=== PATIENT | female | born 1965 | race Caucasian/White ===

== ENCOUNTER 2025-04-23 01:35 | Day surgery (SDC) | payer BC, MEDICARE, SELFPAY ==
[2025-04-09 13:31] VITALS: BMI 28.3
[2025-04-23 09:57] VITALS: BP 134/53; PULSE 86; RESP 18; TEMP 36.6; O2SAT 100; BMI 27.4
[2025-04-23] MEDS: LACTATED RINGERS 1,000 ML 150 ML IV CONT (10:00)
--- NOTE | 2025-04-23 10:31 | WPDANESEPPF ---
Anes - Initial Pre Proc Eval Procedure: Operation Date: 04/23/25 10:30 Proposed Procedures p Colonoscopy - Neel Woodward MD Date/Time: 04/23/25 10:31 Surgeon: Neel Woodward MD Pre Op Diagnosis: Diverticulitis of intestine, part unspecified, wit Patient Data Age: 59 Gender: F Height: 1.6 m Weight: 70.3 kg Last Vital Signs Temp 36.6 C 04/23/25 09:57 Pulse 86 04/23/25 09:57 Resp 18 04/23/25 09:57 BP 134/53 L 04/23/25 09:57 Pulse Ox 100 04/23/25 09:57 O2 Del Method Room Air 04/23/25 09:57 Allergies Allergy/AdvReac Type Severity Reaction Status Date / Time Sulfa (Sulfonamide Allergy Unknown RASH Verified 04/23/25 09:54 Antibiotics) tazobactam Allergy Rash Verified 04/23/25 09:54 Home Medications ?Medication ?Instructions ?Recorded ?Confirmed ?Type acetaminophen 325 mg tablet 325 mg PO ONCE PRN pain 04/09/25 04/23/25 History (Aminofen) biotin 10,000 mcg capsule 10,000 mcg PO DAILY 04/09/25 04/23/25 History calcium phosphate,dibasic 77 1 tablet PO DAILY 04/09/25 04/23/25 History mg-vitamin D3 400 unit tablet diazepam 2 mg tablet 2 mg PO DAILY 04/09/25 04/23/25 History diclofenac sodium 1 % topical gel 2.25 inch topical ONCE 04/09/25 04/23/25 History (Arthritis Pain (diclofenac)) folic acid 1 mg tablet 3 mg PO DAILY 04/09/25 04/23/25 History lactobacillus combination no.9 4 4,000 mmu cells PO DAILY 04/09/25 04/23/25 History billion cell capsule (Adult 50 Plus Probiotic) methotrexate (PF) 20 mg/0.4 mL 20 mg subcut WEEKLY 04/09/25 04/09/25 History subcutaneous auto-injector (Rasuvo (PF)) omeprazole 20 mg capsule,delayed 20 mg PO DAILY 04/09/25 04/23/25 History release ondansetron 4 mg disintegrating 4 mg PO PRN PRN nausea and vomiting 04/09/25 04/09/25 History tablet prednisone 20 mg tablet 20 mg PO DAILY 04/09/25 04/23/25 History prednisone 5 mg tablet 5 mg PO DAILY 04/09/25 04/09/25 History Patient hx anesthesia problems: none Family hx anesthesia problems: none Results Review: All pre-operative results and documents have been reviewed as part of the pre-operative evaluation. [facility] Past Medical History Medical History (Updated 04/23/25 @ 10:35 by Ricardo Bernal MD) Diverticulosis Overweight Rheumatoid arthritis Social History Social History Smoking status: Never smoker Alcohol intake: never Substance use: never Substance use type: does not use Living arrangements: with family Spiritual care concerns: No Anes - Eval Final PreProcedure Day of Procedure 04/23/25 10:31 Patient weight: overweight Heart: regular rate and rhythm Lungs: clear to auscultation Airway: Mallampati scale class II Neurological: alert and oriented Last oral intake: >/= 8 hours ASA classification: III Emergent: no Anesthetic plan: proceed Anesthesia type and monitoring: general GIVS and standard monitoring Results Review: All pre-operative results and documents have been reviewed as part of the pre-operative evaluation. Informed Consent: The patient's anesthetic plan and its attendant risks and benefits were discussed with the patient/family/POA. Questions were solicited and answers provided to the satisfaction of the patient/family/POA.
--- NOTE | 2025-04-23 10:58 | PM.HPGS ---
History of Present Illness History of Present Illness Consent: Risks, benefits, and alternatives have been discussed and questions answered. Patient agrees to proceed with procedure. Chief complaint: Diverticulitis of intestine, part unspecified, wit Narrative: Marian Rizvi is a 59 year old female last colonoscopy 2022, had diverticulitis Review of Systems Review of Systems: All systems reviewed & are unremarkable except as noted in HPI and below PMFSH Past Medical History Medical History (Updated 04/23/25 @ 10:59 by Neel Woodward MD) History of diverticulitis of colon Diverticulosis Overweight Rheumatoid arthritis Social History Social History Smoking status: Never smoker Alcohol intake: never Substance use: never Substance use type: does not use Living arrangements: with family Spiritual care concerns: No Meds Home Medications and Allergies Home Medications ?Medication ?Instructions ?Recorded ?Confirmed ?Type acetaminophen 325 mg tablet 325 mg PO ONCE PRN pain 04/09/25 04/23/25 History (Aminofen) biotin 10,000 mcg capsule 10,000 mcg PO DAILY 04/09/25 04/23/25 History calcium phosphate,dibasic 77 1 tablet PO DAILY 04/09/25 04/23/25 History mg-vitamin D3 400 unit tablet diazepam 2 mg tablet 2 mg PO DAILY 04/09/25 04/23/25 History diclofenac sodium 1 % topical gel 2.25 inch topical ONCE 04/09/25 04/23/25 History (Arthritis Pain (diclofenac)) folic acid 1 mg tablet 3 mg PO DAILY 04/09/25 04/23/25 History lactobacillus combination no.9 4 4,000 mmu cells PO DAILY 04/09/25 04/23/25 History billion cell capsule (Adult 50 Plus Probiotic) methotrexate (PF) 20 mg/0.4 mL 20 mg subcut WEEKLY 04/09/25 04/09/25 History subcutaneous auto-injector (Rasuvo (PF)) omeprazole 20 mg capsule,delayed 20 mg PO DAILY 04/09/25 04/23/25 History release ondansetron 4 mg disintegrating 4 mg PO PRN PRN nausea and vomiting 04/09/25 04/09/25 History tablet prednisone 20 mg tablet 20 mg PO DAILY 04/09/25 04/23/25 History prednisone 5 mg tablet 5 mg PO DAILY 04/09/25 04/09/25 History Allergies Allergy/AdvReac Type Severity Reaction Status Date / Time Sulfa (Sulfonamide Allergy Unknown RASH Verified 04/23/25 09:54 Antibiotics) tazobactam Allergy Rash Verified 04/23/25 09:54 Vital Signs Vital Signs - 24 hr 04/23/25 09:57 Temperature 97.9 F Pulse Rate 86 Respiratory Rate 18 Blood Pressure 134/53 L Pulse Oximetry 100 Oxygen Delivery Room Air Exam Const: General: comfortable and no acute distress HENMT: Face/Nose/Sinus: Normal nares present Eyes: General: appearance normal, both eyes and all related structures Neck: Neck: no JVD Resp: Auscultation: clear to auscultation bilaterally Cardio: Rate: regular rate Rhythm: regular rhythm GI: Inspection: non-distended GI Palp: Yes Soft to palpation Skin: General skin exam: normal color Neuro: Speech: normal speech Extrem: General: normal to inspection Psych: Mental Status: mental status grossly normal Assessment and Plan Assessment and plan (1) History of diverticulitis of colon: Code(s): Z87.19 - Personal history of other diseases of the digestive system Status: Acute Assessment and Plan: colonoscopy
[2025-04-23 11:12] VITALS: BP 92/50; PULSE 84; RESP 16; O2SAT 95
[2025-04-23 11:22] VITALS: BP 101/56; PULSE 77; RESP 20; O2SAT 98
[2025-04-23 11:32] VITALS: BP 109/60; PULSE 71; RESP 17; O2SAT 98
== END 2025-04-23 11:48 | disposition home or self-care (01) ==
PROVIDERS: Visit Provider Internal Medicine Gastroenterology
PROC: 0DJD8ZZ Inspection of Lower Intestinal Tract, Via Natural or Artificial Opening Endoscopic (ICD-10-PCS; CPT 45378; principal; 2025-04-23 10:30)
DX: K57.30 Diverticulosis of large intestine without perforation or abscess without bleeding (principal); K64.8 Other hemorrhoids; M06.9 Rheumatoid arthritis, unspecified; Z79.52 Long term (current) use of systemic steroids; Z87.19 Personal history of other diseases of the digestive system
CPT/HCPCS: 45378; J2003; J2704; J7120